=== PATIENT | female | born 1995 | race African-American/Black ===

== ENCOUNTER 2017-12-02 12:30 | Emergency (ER) | payer OTHER ==
[~2017-12-02] VITALS: Ht 162.6 cm; Wt 55.8 kg
[2017-12-02 13:00] LABS: ABSOLUTE BASOPHIL COUNT 0 /CUMM (0.0-0.2); ABSOLUTE EOSINOPHIL COUNT 0.2 /CUMM (0.0-0.7); ABSOLUTE LYMPH COUNT 1.2 /CUMM (1.2-3.4); ABSOLUTE MONOCYTE COUNT 0.5 /CUMM (0.10-0.60); BASOPHIL % 0.4 % (0.0-2.0); EOSINOPHIL % 4.2 % (0-5); GRANULOCYTE % 52.7 % (42.2-75.2); HEMATOCRIT 34.8 % (37-47); MEAN CORPUSCULAR HGB 29.2 PG (27.0-31.0); MEAN CORPUSCULAR HGB CONC 34.3 G/DL (33.0-37.0); MEAN CORPUSCULAR VOLUME 85.1 FL (81.0-99.0); MEAN PLATELET VOLUME 8.9 FL (7.4-10.4); PLATELET COUNT 159 /CUMM (130-400); RBC DISTRIBUTION WIDTH 13.4 % (11.5-14.5); RED BLOOD CELL CT 4.08 /CUMM (4.20-5.40); WHITE BLOOD CELL COUNT 3.9 /CUMM (4.8-10.8)
--- NOTE | 2017-12-02 13:39 | ED GI/GU/ABDOMINAL COMPLAINT ---
History of Present Illness General Chief Complaint: Female Urogenital Problems Stated Complaint: VAGINAL BLEEDING +PREG TEST AT HOME Source: patient Exam Limitations: no limitations Vital Signs & Intake/Output Vital Signs & Intake/Output Vital Signs Date Time Temp Pulse Resp B/P B/P Pulse O2 O2 Flow FiO2 Mean Ox Delivery Rate 12/02 1510 98.5 63 20 126/80 99 Room Air 12/02 1233 98.7 61 20 122/87 98 Room Air ED Intake and Output 12/03 0000 12/02 1200 Intake Total Output Total Balance Patient 123 lb Weight Weight Estimated Measurement Method Allergies Coded Allergies: No Known Allergies (12/02/17) Reconcile Medications Ibuprofen 800 MG TABLET 1 TAB PO TID PAIN Triage Note: PT TO ED C/O LOWER ABD PAIN YESTERDAY WITH VAGINAL BLEEDING AND BLOOD CLOTS THIS AM. STATES HAD 2 POSITIVE HOME TESTS 2 WEEKS AGO. HAS APPT WITH OB ON THURSDAY. . STATES 7 PADS IN 24 HOURS. Triage Nurses Notes Reviewed? yes ? Y Is pt currently ? No Onset: Abrupt Duration: week(s): (2) Timing: recent history Activities at Onset: none HPI: 22-year-old female that took a test 2 weeks ago that was positive comes into the emergency room with complaints of vaginal bleeding at certain heavy last night. She is a . She went through multiple pads with some passing of clots. Some lower abdominal cramping. Denies any fever chills vomiting or urinary symptoms. She comes in for further evaluation. (Grant Jonas) Past History Travel History Traveled to [place] past 21 day No Medical History Any Pertinent Medical History? none Surgical History Surgical History: none Psychosocial History What is your primary language Korean Tobacco Use: Never used ETOH Use: occasional use Illicit Drug Use: denies illicit drug use Family History Hx Contributory? No (Grant Jonas) Review of Systems Review of Systems Constitutional: Reports: no symptoms. EENTM: Reports: no symptoms. Respiratory: Reports: no symptoms. Cardiovascular: Reports: no symptoms. GI: Reports: no symptoms. Genitourinary: Reports: see HPI. Musculoskeletal: Reports: no symptoms. Skin: Reports: no symptoms. Neurological/Psychological: Reports: no symptoms. Hematologic/Endocrine: Reports: see HPI. Immunologic/Allergic: Reports: no symptoms. All Other Systems: Reviewed and Negative (Grant Jonas) Physical Exam Physical Exam General Appearance: well developed/nourished, no apparent distress, alert Head: atraumatic, normal appearance Eyes: Bilateral: normal appearance. Ears, Nose, Throat, Mouth: moist mucous membrane Neck: normal inspection Respiratory: no respiratory distress Gastrointestinal: soft, non-tender Back: normal inspection Extremities: normal range of motion Neurologic/Psych: awake, alert, oriented x 3 Skin: intact, normal color Core Measures ACS in differential dx? No Sepsis Present: No Sepsis Focused Exam Completed? No (Grant Jonas) Progress Differential Diagnosis: ectopic , spontaneous miscarriage, threatened miscarriage, Plan of Care: Orders Procedure Date/time Status TYPE & SCREEN (NOT X-MATCH) 12/02 1249 Complete URINE 12/02 1233 Complete URINALYSIS 12/02 1233 Complete HUMAN BETA HCG TITRE 12/02 1233 Complete COMPREHENSIVE METABOLIC PANEL 12/02 1233 Complete CBC WITHOUT DIFFERENTIAL 12/02 1233 Complete Laboratory Tests 12/02/17 1249: Anion Gap 7, Estimated GFR > 60, BUN/Creatinine Ratio 16.7, Glucose 98, Calcium 9.2, Total Bilirubin 0.6, AST 19, ALT 29, Alkaline Phosphatase 38, Total Protein 6.9, Albumin 4.1, Globulin 2.8, Albumin/Globulin Ratio 1.5, Beta HCG, Quant 26.5 , CBC w Diff NO MAN DIFF REQ, RBC 4.08 L, MCV 85.1, MCH 29.2, MCHC 34.3, RDW 13.4, MPV 8.9, Gran % 52.7, Lymphocytes % 30.4, Monocytes % 12.3 H, Eosinophils % 4.2, Basophils % 0.4, Absolute Granulocytes 2.0, Absolute Lymphocytes 1.2, Absolute Monocytes 0.5, Absolute Eosinophils 0.2, Absolute Basophils 0 12/02/17 1240: Urine Color YEL, Urine Clarity CLEAR, Urine pH 6.0, Ur Specific [place] >= 1.030 , Urine Protein NEG, Urine Ketones NEG, Urine Nitrite NEG, Urine Bilirubin NEG, Urine Urobilinogen 0.2, Ur Leukocyte Esterase NEG, Ur Microscopic SEDIMENT EXAMINED, Urine RBC 1-3, Urine WBC RARE, Ur Epithelial Cells FEW, Urine Bacteria MOD H, Urine Mucus FEW, Urine Hemoglobin SMALL H, Urine Glucose NEG, Urine Test Initial ED EKG: none (Grant Jonas) Departure Departure Disposition: HOME OR SELF CARE Condition: Stable Clinical Impression Primary Impression: Spontaneous miscarriage Referrals: Noa ARGUETA,Xiomara Abdalla (PCP/Family) Additional Instructions: Follow-up with SUPPLY CLERK doctor for repeat hormone level in 2-3 days. Return if any other concerns worsening symptoms. Take ibuprofen as needed for cramping pain. Please go over all results of today's visit with your primary care doctor. Contact your primary care doctor to let them know you were here in the emergency room. There may be nonspecific findings which may not be related to your visit today here in the emergency room but may require further evaluation and chronic monitoring by your primary care doctor. If you had a laceration today the chance of foreign body always remains. You should follow-up with your primary care doctor for recheck in 3-5 days for a wound check. If you had an x-ray done there is a chance that a fracture could have been missed on initial read and you should follow-up with your primary care doctor for repeat x-rays if symptoms persist. If your blood pressure was elevated here in the emergency room please have rechecked by [facility] primary care doctor within the next 48. If you were prescribed a narcotic here in the emergency room or any type of controlled substances you're not allowed to drive while taking this medication or operate any type of heavy machinery. Narcotics can make you feel lightheaded dizziness nausea and can cause constipation. You may need to hop picker a stool softener. Thank you for choosing [facility] emergency room. Please return to the emergency room immediately if you have any other concerns worsening of symptoms. Departure Forms: Customer Survey General Discharge Information Prescriptions: Current Visit Scripts Ibuprofen 1 TAB PO TID #30 TAB Comments 12/02/2017 3:15:36 PM Patient clinically looks well. In no apparent distress. Her Quant level is only 26. That with the associated bleeding symptoms are most consistent with spontaneous miscarriage. She is Rh+. Follow-up with OB. Return if any other concerns. (Grant Jonas) PA/HEALTH COMMUNICATIONS SPECIALIST Co-Sign Statement Statement: ED Attending supervision documentation- I saw and evaluated the patient. I have also reviewed all the pertinent lab results and diagnostic results. I agree with the findings and the plan of care as documented in the PA's/HEALTH COMMUNICATIONS SPECIALIST's documentation. x I have reviewed the ED Record and agree with the PA's/HEALTH COMMUNICATIONS SPECIALIST's documentation. [] Additions or exceptions (if any) to the PAs/HEALTH COMMUNICATIONS SPECIALIST's note and plan are summarized below: [] (Jean-Claude ARGUETA,Kingsley)
--- NOTE | 2017-12-02 14:48 | ULTRASOUND REPORT ---
EXAMINATION: US TRANSVAGINAL CLINICAL INFORMATION: Abdominal pain, positive , vaginal bleeding. COMPARISON: None. TECHNIQUE: Real-time grayscale and Doppler ultrasound of the pelvis was obtained using transabdominal and transabdominal approaches. LMP: 10/02/2017. FINDINGS: UTERUS: The uterus measures 6.2 x 3.3 x 4.4 cm. The cervix measures 3.2 cm in length. The endometrial stripe measures 0.4 cm. No endometrial or ectopic gestational sac is demonstrated. No pole or yolk sac are seen. ADNEXA: Ovarian vascularity:Doppler demonstrates both arterial and venous vascular flow in the right and left ovary. No evidence of ovarian torsion. Right Ovary: The right ovary measures 1.7 x 1 7 x 1.8 cm. Left Ovary: The left ovary measures 2.4 x 1.4 x 2.1 cm. There is a 1.1 x 0.5 x 0.8 cm cyst, which may be a corpus luteal cyst. Cul-de-sac: There is trace fluid in the pelvis. IMPRESSION: 1. No intrauterine or ectopic gestational sac is demonstrated. The endometrial stripe appears normal. 2. There is trace free fluid in the pelvis.
[2017-12-02] MEDS ORDERED: IBUPROFEN800 M1 PO (15:04)
[2017-12-02 15:10] VITALS: BP 126/80
== END 2017-12-02 15:11 ==
LOC: EDBD 12:30 → ERH 12:30
PROVIDERS: Physician Assistant Medical
DX: O03.9 Complete or unspecified spontaneous abortion without complication (principal); N93.9 Abnormal uterine and vaginal bleeding, unspecified; R10.30 Lower abdominal pain, unspecified
CPT/HCPCS: 76817; 81001; 81025